=== PATIENT | male | born 1995 | race Caucasian/White ===

== ENCOUNTER 2021-07-04 23:24 | Emergency (ER) | payer BC ==
[2021-07-05] MEDS ORDERED: PEPCID20 MG PO (00:13)
[2021-07-05] MEDS ORDERED: PREDNISONE 50 M50 MG PO (00:13)
[2021-07-05] MEDS ORDERED: BENADRYL 50MG C50 MG PO (00:13)
== END 2021-07-05 00:15 | disposition home or self-care (01) ==
LOC: ER1 23:24
DX: T78.40XA Allergy, unspecified, initial encounter (principal)
CPT/HCPCS: 99283; J2930